=== PATIENT | male | born 1965 | race Asian ===

== ENCOUNTER 2018-12-23 08:40 | Outpatient (CLI) | payer OTHER ==
[2018-12-23 09:15] LABS: % BASOPHILS 0.6 % (0.0-2.0); % EOSINOPHILS 5.8 % (0.0-5.0); % LYMPHOCYTES 28.7 % (20.0-50.0); % MONOCYTES 6.7 % (2.0-10.0); % NEUTROPHILS 58.2 % (40.0-80.0); EOSINOPHILE ABSOLUTE 0.4 Th/cmm (0.1-0.4); LYMPHOCYTE ABSOLUTE 1.9 Th/cmm (1.5-3.0); MEAN CELL VOLUME 88.1 fl (80-99); MEAN CORPUSCULAR HEMOGLOBIN 28.8 pg (26.0-30.0); MEAN CORPUSCULAR HGB CONC 32.7 pg (28.0-36.0); MONOCYTE ABSOLUTE 0.4 Th/cmm (0.3-1.0); NEUTROPHILE ABSOLUTE 3.8 Th/cmm (1.8-8.0); PLATELET COUNT 263 Th/cmm (150-400); RED BLOOD COUNT 5.22 Mil/cmm (4.30-5.70); RED CELL DISTRIBUTION WIDTH 12.8 % (11.5-20.0); WHITE BLOOD COUNT 6.5 Th/cmm (4.8-10.8)
[2018-12-23 09:33] LABS: ALB/GLOB RATIO 1.6 (1.0-1.8); ALKALINE PHOSPHATASE 66 U/L (34-104); ANION GAP 10.6 (7.0-16.0); BUN - UREA NITROGEN 12 mg/dL (7-25); CALCIUM SERUM 8.9 mg/dL (8.6-10.3); CARBON DIOXIDE 29.1 mEq/L (21.0-31.0); CHLORIDE 104 mEq/L (98-107); CHOLESTEROL 249 mg/dL (<200); CREATININE - SERUM 0.9 mg/dL (0.7-1.3); GFR AFRICAN-AMERICAN > 60.0 ml/min (>90); GFR NON AFRICAN-AMERICAN > 60.0 ml/min; GLUCOSE 96 mg/dL (70-105); HDL -HIGH DENSITY LIPOPROTEIN 46 mg/dL (23-92); POTASSIUM SERUM 3.7 mEq/L (3.5-5.1); SGOT 18 U/L (13-39); SGPT/ALT 22 U/L (7-52); SODIUM SERUM 140 mEq/L (136-145); TOTAL PROTEIN,SERUM 6.5 gm/dL (6.0-8.3); TRIGLYCERIDES 213 mg/dL (<150)
[2018-12-24 10:07] LABS: % FREE PSA 22.5 %; PROSTATE SPECIFIC ANTIGEN 0.8 ng/mL (0.0-4.0); PSA FREE 0.18 ng/mL
== END 2018-12-23 09:12 | disposition home or self-care (01) ==
LOC: LAB 08:40 → EEVIPCON 08:40 → LAB 09:12
PROVIDERS: ATTEND Internal Medicine
DX: E29.1 Testicular hypofunction (principal); E34.9 Endocrine disorder, unspecified
CPT/HCPCS: 36415-UA; 80053-TC; 80061-TC; 82306-90; 82670-90; 84154-90; 84402-90; 84403-90; 84436-TC; 84443-TC; 84479-90; 85025-TC; 86376-90

== ENCOUNTER 2019-02-08 19:37 | Outpatient (CLI) | payer OTHER ==
[2019-02-08 20:04] LABS: % BASOPHILS 0.6 % (0.0-2.0); % LYMPHOCYTES 27.5 % (20.0-50.0); % MONOCYTES 7.5 % (2.0-10.0); % NEUTROPHILS 59.4 % (40.0-80.0); EOSINOPHILE ABSOLUTE 0.4 Th/cmm (0.1-0.4); HEMATOCRIT 44.9 % (41.0-60); HEMOGLOBIN 15.1 gm/dL (12-16); MEAN CELL VOLUME 86.6 fl (80-99); MEAN CORPUSCULAR HEMOGLOBIN 29.2 pg (26.0-30.0); MEAN CORPUSCULAR HGB CONC 33.7 pg (28.0-36.0); MONOCYTE ABSOLUTE 0.6 Th/cmm (0.3-1.0); NEUTROPHILE ABSOLUTE 4.4 Th/cmm (1.8-8.0); PLATELET COUNT 278 Th/cmm (150-400); RED BLOOD COUNT 5.19 Mil/cmm (4.30-5.70); RED CELL DISTRIBUTION WIDTH 12.8 % (11.5-20.0); WHITE BLOOD COUNT 7.4 Th/cmm (4.8-10.8)
[2019-02-08 20:49] LABS: INR 0.87 (0.5-1.4)
== END 2019-02-08 20:22 ==
LOC: LAB 19:37
PROVIDERS: ATTEND Internal Medicine
DX: D68.8 Other specified coagulation defects (principal)
CPT/HCPCS: 36415-UA; 85025-TC; 85610-TC; 85730-TC

== ENCOUNTER 2019-03-20 09:38 | Outpatient (CLI) | payer OTHER ==
[2019-03-20 10:11] LABS: % BASOPHILS 0.7 % (0.0-2.0); % EOSINOPHILS 3.7 % (0.0-5.0); % LYMPHOCYTES 30.3 % (20.0-50.0); % MONOCYTES 6.5 % (2.0-10.0); % NEUTROPHILS 58.8 % (40.0-80.0); EOSINOPHILE ABSOLUTE 0.2 Th/cmm (0.1-0.4); HEMATOCRIT 45.8 % (41.0-60); HEMOGLOBIN 15.7 gm/dL (12-16); MEAN CELL VOLUME 87.1 fl (80-99); MEAN CORPUSCULAR HEMOGLOBIN 29.8 pg (26.0-30.0); MEAN CORPUSCULAR HGB CONC 34.3 pg (28.0-36.0); MONOCYTE ABSOLUTE 0.4 Th/cmm (0.3-1.0); NEUTROPHILE ABSOLUTE 4.1 Th/cmm (1.8-8.0); PLATELET COUNT 269 Th/cmm (150-400); RED BLOOD COUNT 5.25 Mil/cmm (4.30-5.70); WHITE BLOOD COUNT 6.7 Th/cmm (4.8-10.8)
[2019-03-20 10:43] LABS: CHOLESTEROL 311 mg/dL (<200); HDL -HIGH DENSITY LIPOPROTEIN 44 mg/dL (23-92); TRIGLYCERIDES 432 mg/dL (<150)
[2019-03-23 00:04] LABS: % FREE PSA 23.8 %; PROSTATE SPECIFIC ANTIGEN 0.8 ng/mL (0.0-4.0); PSA FREE 0.19 ng/mL; TESTOSTERONE 1211.8 ng/dL (264.0-916.0)
== END 2019-03-20 10:05 | disposition home or self-care (01) ==
LOC: LAB 09:38
PROVIDERS: ATTEND Internal Medicine
DX: Z12.5 Encounter for screening for malignant neoplasm of prostate (principal); E29.1 Testicular hypofunction; R53.83 Other fatigue
CPT/HCPCS: 36415-UA; 80061-TC; 82670-90; 84154-90; 84402-90; 84403-90; 85025-TC